=== PATIENT | male | born 1970 | race Caucasian/White ===

== ENCOUNTER 2019-10-25 10:31 | Emergency (ER) | payer BC, MEDICARE, MEDICAID ==
[~2019-10-25] VITALS: Ht 190.5 cm; Wt 153.3 kg
[~2019-10-25 10:31] MED LIST: CARI350T PO; DIAZ10TA5 PO; HYDR-4353 PO; PANT40TA4 PO; PER5325T PO
[2019-10-25] MEDS ORDERED: normal saline 1000ML IV soln IVB ONE (11:35)
[2019-10-25] MEDS ORDERED: ketorolac trometh. 30mg/ml inj. IV ONE (11:35)
[2019-10-25] MEDS ORDERED: probenecid 500mg tablet PO ONE (11:45)
[2019-10-25 11:49] LABS: BASOPHILS % (AUTO) 0.6 % (0-1); EOSINOPHILS # (AUTO) 0.2 X10'3 (0-0.9); EOSINOPHILS % (AUTO) 2.5 % (0-6); LYMPHOCYTES # (AUTO) 1.5 X10'3 (1.1-4.8); LYMPHOCYTES % (AUTO) 18.5 % (21-51); MEAN CORPUSCULAR HEMOGLOBIN 29.5 PG (27.0-31.0); MEAN CORPUSCULAR HGB CONC 34.1 g/dL (33.0-36.5); MEAN CORPUSCULAR VOLUME 86.5 FL (78-98); MEAN PLATELET VOLUME 8.6 FL (7.4-10.4); MONOCYTES # (AUTO) 0.4 X10'3 (0-0.9); MONOCYTES % (AUTO) 4.8 % (2-12); NEUTROPHILS # (AUTO) 5.8 X10'3 (1.8-7.7); NEUTROPHILS % (AUTO) 73.6 % (42-75); PLATELET COUNT 249 X10'3 (140-440); RED BLOOD COUNT 4.74 X10'6 (4.70-6.10); RED CELL DISTRIBUTION WIDTH 14.2 % (11.5-14.5); WHITE BLOOD COUNT 7.9 X10'3 (4.5-11.0)
[2019-10-25 12:06] LABS: ALANINE AMINOTRANSFERASE 26 U/L (12-78); ALBUMIN 4.3 G/DL (3.4-5.0); ALBUMIN/GLOBULIN RATIO 1.7 (1.1-1.5); ALKALINE PHOSPHATASE 78 IU/L (46-116); ANION GAP 7 (8-16); ASPARTATE AMINO TRANSFERASE 22 U/L (10-37); BILIRUBIN,TOTAL 0.6 MG/DL (0.1-1.0); BLOOD UREA NITROGEN 11 MG/DL (7-18); BUN/CREATININE RATIO 8.6 (5.4-32.0); CALCIUM 8.8 MG/DL (8.5-10.1); CHLORIDE 106 MMOL/L (99-107); CREATININE 1.28 MG/DL (0.60-1.10); GLUCOSE 91 MG/DL (70-104); POTASSIUM 4.5 MMOL/L (3.5-5.1); SODIUM 139 MMOL/L (135-145); TOTAL CARBON DIOXIDE 26.1 MMOL/L (24-32); TOTAL PROTEIN 6.9 G/DL (6.4-8.2); eGFR 60 ML/MIN
[2019-10-25] MEDS ORDERED: DOXY100C43 PO (13:32)
[2019-10-25] MEDS ORDERED: CEPH500C5 PO (13:32)
[2019-10-25] MEDS ORDERED: ampicillin/sulbac 3gm/NS 100ml 100 ML IV SCH (14:00)
[2019-10-25 14:04] VITALS: BP 128/83
== END 2019-10-25 13:58 | disposition home or self-care (01) ==
LOC: ER 10:31
DX: S70.11XA Contusion of right thigh, initial encounter (principal); L03.115 Cellulitis of right lower limb; G89.29 Other chronic pain; F17.210 Nicotine dependence, cigarettes, uncomplicated; Z98.890 Other specified postprocedural states; Z72.89 Other problems related to lifestyle; Z91.010 Allergy to peanuts; Z79.899 Other long term (current) drug therapy; W18.39XA Other fall on same level, initial encounter; Y93.89 Activity, other specified; Y92.89 Other specified places as the place of occurrence of the external cause; Y99.8 Other external cause status
CPT/HCPCS: 36415; 80053; 84145; 85025; 93971; 96365; 96375; 99284; J1885; J7030; J0295

== ENCOUNTER 2025-06-09 03:53 | Emergency (ER) | payer BC, MEDICARE ==
[~2025-06-09] VITALS: Ht 190.5 cm; Wt 134.0 kg
[~2025-06-09 03:53] MED LIST changes: -PANT40TA4 PO; +PANT40TA54 PO
[2025-06-09 04:13] VITALS: BP 106/71; PULSE 84; TEMP 98.3; O2SAT 96
--- NOTE | 2025-06-09 05:09 | RADIOLOGY REPORT ---
CLINICAL INDICATION: RIGHT ELBOW PAIN NO TRAUMA TECHNIQUE: DI ELBOW, COMPLETE (3VW MIN) COMPARISON: None FINDINGS/IMPRESSION: : There is no evidence of acute fracture or dislocation. Soft tissues are unremarkable.
--- NOTE | 2025-06-09 06:33 | Physician Documentation ---
History of Present Illness ~ General Chief Complaint: Arm Pain Stated Complaint: SWOLLEN ELBOW/PAIN Time Seen by MD: 06:26 Primary Medical Doctor: ERI Source: patient, family Mode of Arrival: POV History of Present Illness Initial Comments CC: Right elbow pain HPI: Patient is a 54-year-old male with history of chronic back pain presenting to the ED for evaluation of right elbow pain secondary to straining it last night. The patient reports that he was sitting in his recliner and tried to reach over to grab his 's hand but felt his right elbow "lock and popped." He states he moved it again in his popped again and he was able to move it but it still hurts. Pain was immediate and increases with range of motion. He has not been able to sleep due to the pain. noticed swelling to the patient's right shoulder, so they put his right arm in a sling and applied ice. The patient took Valium for the pain but had minimal relief. Patient is not on any anticoagulants. is present at bedside. No arm numbness or weakness. No fever or chills. No wound. No trauma ROS: Constitutional: Negative for fever and chills. HENT: Negative for sore throat and rhinorrhea. Eyes: Negative for pain and redness. Respiratory: Negative for cough and SOB. Cardiovascular: Negative for chest pain and palpitations. Gastrointestinal: Negative for nausea and vomiting. . Genitourinary: Negative for dysuria and hematuria. Musculoskeletal: Positive for right elbow pain. Negative for acute back pain and acute neck pain. Skin: Negative for rash and pruritus. Neurological: Negative for acute numbness or weakness. PMH: Chronic back pain from previous back surgeries Medication Reconciliation Allergies: Coded Allergies: milk (Verified Allergy, Mild, 08/01/14) loose stool stomach ache gas sulfamethoxazole (Verified Allergy, Unknown, 06/09/25) trimethoprim (Verified Allergy, Unknown, 06/09/25) Scheduled Hydrocodone Bit/Acetaminophen ([place] 10-325 Tablet), 1 TABLET PO BID, (Reported) Pantoprazole Sodium (Pantoprazole Sodium), 40 MG PO DAILY, (Reported) Scheduled PRN Carisoprodol (Soma), 1 TABLET PO Q8H PRN for muscle spasms Diazepam (Diazepam), 1 TAB PO Q12H PRN PRN for for anxiety/agitation, (Reported) Hydrocodone Bit/Acetaminophen 5/325 MG ([place] 5/325 MG), 1-2 TAB PO Q4-6 hours PRN for pain Oxycodone Hcl/Acetaminophen 5/325 MG* (Percocet 5/325 MG*), 1 TAB PO Q8H PRN for severe pain, (Reported) Past Medical History Past Medical History: Pneumonia, Chronic Back Pain Other Past Medical History: Chronic back pain Past Surgical History: orthopedic surgeries, other Patient History: (CVA) Cerebrovascular accident MOTHER, Onset:Unknown (DM Type 2) Diabetes mellitus type 2 MOTHER, Onset:Unknown Alcohol Use: Occasionally Drug Use: none Lives with: Family Lives In: Home Physical Exam Physical Exam Vital Signs: Temperature: 98.3, Source: Oral, Heart Rate: 84, Respiratory Rate: 20, BP: 106/71, Pulse Oximetry: 96, Weight: 134.000 Physical Exam General: Awake. No acute distress. Verbal Head: No trauma Eyes: Nl lids Nl conjunctiva. No eye discharge ENT: Mucous membranes Nl. Lips Nl. No lesions Neck: Supple. No JVD. No visible mass Resp: Rate normal. No respiratory distress. No retractions. Normal air flow. No wheezes, rhonchi, or rales. Heart: Regular rhythm. No murmur. No rub Abdomen: Soft. Nontender. No guarding. No rebound Musc/skeletal: Tenderness to right elbow with range of motion, no lateral tenderness. No erythema or warmth. Positive pain with the range of motion. Minimal swelling. No bruising. No tenderness to the shoulder, humerus forearm or hand or wrist. Normal motor and sensory to the right upper extremity. 2+ radial pulse. Skin intact. Skin: No rash. No petechiae. Not diaphoretic Neuro: Alert, oriented. Normal speech. Normal median radial and ulnar motor and sensory exam to the right upper extremity Progress Progress Note Sling placed by RN checked by ER Results/Orders Results/Orders Completed Orders - JENNIFER MALLOY MD Hydrocodone/Apap 5/325mg Tab ([place] 5/32 (06/09/25 06:35) * Arm Sling To Be Placed Overn (06/09/25 06:40) Medications Received in ER Medications (Trade) Dose Ordered Sig/Oren Route PRN Reason Start Time Stop Time Status Last Admin Dose Admin ([place] 5/325mg tablet) 1 tab ONCE ONCE PO 06/09/25 06:35 06/09/25 06:36 DC 06/09/25 06:58 1 TAB Vital Signs 06/09/25 06/09/25 04:13 06:58 Temp 98.3 Pulse 84 Resp 20 17 B/P (MAP) 106/71 Pulse Ox 96 EKG/XRAY/CT/US/VASC/MRI Bone/Soft Tissue X-Ray (Ext.) : Interpreted By: radiologist Views: 3 VIEW Additional Comment CLINICAL INDICATION: RIGHT ELBOW PAIN NO TRAUMA TECHNIQUE: DI ELBOW, COMPLETE (3VW MIN) COMPARISON: None FINDINGS/IMPRESSION: : There is no evidence of acute fracture or dislocation. Soft tissues are unremarkable. Electronically Signed by:ALDO GOMEZ MD Date & Time: 06/09/25 0509 Medical Decision Making Additional information obtaine: N/A Findings Patient is a 54-year-old male with history of chronic back pain presenting to the ED for evaluation of right elbow pain secondary to straining it last night. The patient reports that he was sitting in his recliner and tried to reach over to grab his 's hand but felt his right elbow "lock and popped." Pain was immediate and increases with range of motion. He has not been able to sleep due to the pain. noticed swelling to the patient's right shoulder, so they put his right arm in a sling and applied ice. The patient took Valium for the pain but had minimal relief. Patient is not on any anticoagulants. is present at bedside. MDM: Limited: (2 points from category 1 or one discussion with independent historian). Moderate: one of the following (3 points from category 1, or independent interpretations of tests performed by another physician/QHP: (ct,ecg,rad isela,rhythm strip,or comparing xray to prior), or discussion of tests or management with other professionals (not including [facility] ER doc/PA or family members.) High: (2 of 3 from : category 1 (3 points), independent interpretation of tests performed by another physician/QHP, and discussion of tests or management). Prior ER notes reviewed: Category 1: Number of Tests ordered or reviewed: 1 Number of Independent Historians: 1 Non [facility] ER notes reviewed: 1. 2. 3. Category 2: I independently interpreted the: X-ray Category 3: Discussion with other professionals: [employer] Problems related to: ( )Challenges with access to Primary Care or Outpatient Speciality Care ( )Psychosocial circumstances such as mental health issues ( )Social environment: such as violence or substance abuse ( )Housing and economic circumstances: such as homelessness ( )Employment and unemployment: such as recently loss of employment ( )Occupational exposures or injuries: ( )Accessing ED outside of normal PCP hours ( )Language barrier: ( )Primary support group, including family circumstances: Prescription Management: Rx strength meds given in ED: [place] New Prescriptions: [place] ( )I have reviewed the patient's medications and I do not recommend any changes at this time. (Applies only if checked) Comorbid conditions include but are not limited to: History of right shoulder dislocation and chronic back pain Testing or interventions considered: Antibiotics this history and physical do not suggest olecranon bursitis or infectious etiology. No evidence of dislocation no evidence of brachial artery injury. No compartment syndrome noted Differential includes but is not limited to: Subluxation reduced dislocation reduced olecranon bursitis, septic joint, brachial artery injury, compartment syndrome or fracture Differential Diagnosis See MDM Departure Time of Disposition: 07:29 Disposition: 01 HOME / SELF CARE / HOMELESS Impression: Primary Impression: Elbow injury Condition: Stable Additional Instructions: Wear the sling. 3 times a day make sure you do the exercises where you [place] your shoulder to avoid a frozen shoulder as I explained. Okay to take [id number] Tylenol or the prescribed [place] for pain. Do not take them together as they both have Tylenol in them. Do not take [place] within 6 hours of taking Valium. Follow up with the your primary care doctor or an orthopedist. Return for any worsening symptoms, numbness, weakness, or concerns Referrals: NO PRIMARY CARE PROVIDER (PCP) Prescriptions Hydrocodone Bit/Acetaminophen 5/325 MG ([place] 5/325 MG) 5 Mg/325 Mg Tablet 1-2 TAB PO Q4-6 hours PRN for pain, #16 TAB Prov: JENNIFER MALLOY MD 06/09/25 Education Educated: Patient, Family Educated regarding: diagnosis, treatment, prognosis, need for follow up Signature Scribe Signature: Scribed for Jennifer Malloy MD by Shirley Crews . 06/09/25 06:59 Attestation: Scribed for Jennifer Malloy MD by Jennifer Malloy. 06/09/2025 0732 JENNIFER MALLOY MD Jun 09, 2025 06:33 SHIRLEY TUCKER Jun 09, 2025 07:16
[2025-06-09] MEDS ORDERED: HYDR-3965 PO (06:39)
[2025-06-09 06:58] VITALS: RESP 17
[2025-06-09] MEDS: HYDROcodone/acetaminophen 5mg/325mg tablet PO ONE (06:58)
== END 2025-06-09 07:03 | disposition home or self-care (01) ==
LOC: ER 03:54
DX: S59.801A Other specified injuries of right elbow, initial encounter (principal); E11.9 Type 2 diabetes mellitus without complications; G89.29 Other chronic pain; Z91.0110 Allergy to milk products, unspecified; Z88.2 Allergy status to sulfonamides; Z87.01 Personal history of pneumonia (recurrent); Z88.8 Allergy status to other drugs, medicaments and biological substances; Z79.899 Other long term (current) drug therapy; Z72.89 Other problems related to lifestyle; Z98.890 Other specified postprocedural states; X58.XXXA Exposure to other specified factors, initial encounter; Y93.89 Activity, other specified; Y92.89 Other specified places as the place of occurrence of the external cause; Y99.8 Other external cause status
CPT/HCPCS: 73080; 99283; A4565